=== PATIENT | female | born 1975 | race Two or more races ===

== ENCOUNTER 2023-03-01 11:22 | Emergency (ER) | payer SELFPAY ==
[~2023-03-01] VITALS: Ht 152.4 cm; Wt 95.6 kg
[2023-03-01 12:32] LABS: Urine Bacteria FEW /hpf (None Seen); Urine Blood 3+ /uL (Negative); Urine Clarity HAZY (Clear); Urine Color Brown (Yellow); Urine Protein, UAD 2+ (Negative); Urine Specific Gravity 1.007 (1.001-1.035); Urine Urobilinogen Normal (Negative); Urine WBC 272 /hpf (0 - 5); Urine WBC Clumps PRESENT /hpf (None Seen)
[2023-03-01 12:45] VITALS: BP 149/87; PULSE 104; RESP 18; O2SAT 96
[2023-03-01] MEDS ORDERED: IBUP-1456 PO (13:06)
[2023-03-01] MEDS ORDERED: CIPR-173 PO (13:06)
[2023-03-01] MEDS ORDERED: cefTRIAXone SOD 1,000 MG VL IM ONE (13:15)
[2023-03-01] MEDS ORDERED: IBUPROFEN 800 MG TAB PO ONE (13:15)
[2023-03-01 13:16] VITALS: TEMP 98.9
== END 2023-03-01 13:24 | disposition home or self-care (01) ==
LOC: ER 11:22
DX: N39.0 Urinary tract infection, site not specified (principal)
CPT/HCPCS: 81001; 96372; 99283; J0696

== ENCOUNTER 2023-05-02 13:26 | Emergency (ER) | payer SELFPAY ==
[~2023-05-02] VITALS: Ht 154.9 cm; Wt 86.0 kg
[~2023-05-02 13:26] MED LIST: CIPR-173 PO; IBUP-1456 PO
[2023-05-02 14:59] VITALS: BP 112/76; PULSE 110; RESP 20; TEMP 99.1; O2SAT 98
[2023-05-02] MEDS ORDERED: KETOROLAC TROMETH 30 MG/ML 1ML VIAL IV ONE (15:15)
[2023-05-02] MEDS ORDERED: KETOROLAC TROMETH 60MG/2ML VIAL IV ONE (15:30)
[2023-05-02] MEDS ORDERED: METH-1182 PO (15:54)
[2023-05-02] MEDS ORDERED: IBUP-1456 PO (15:54)
== END 2023-05-02 16:10 | disposition home or self-care (01) ==
LOC: EDBD 13:26 → ER 13:26
DX: S39.012A Strain of muscle, fascia and tendon of lower back, initial encounter (principal); Z79.1 Long term (current) use of non-steroidal anti-inflammatories (NSAID); Z79.899 Other long term (current) drug therapy; V89.2XXA Person injured in unspecified motor-vehicle accident, traffic, initial encounter; Y93.I9 Activity, other involving external motion; Y92.89 Other specified places as the place of occurrence of the external cause; Y99.8 Other external cause status
CPT/HCPCS: 72100; 96374; 99283; J1885